=== PATIENT | male | born 1960 | race Caucasian/White ===

== ENCOUNTER 2020-02-03 19:10 | Emergency (ER) | payer OTHER ==
[~2020-02-03] VITALS: Ht 185.4 cm; Wt 90.9 kg
[2020-02-03 19:48] VITALS: BP 140/96
[2020-02-03 20:01] LABS: GLUCOSE,POINT OF CARE 86 MG/DL (70-110)
== END 2020-02-03 20:00 | disposition home or self-care (01) ==
LOC: EMS 19:12
DX: F10.129 Alcohol abuse with intoxication, unspecified (principal); E11.9 Type 2 diabetes mellitus without complications; Y90.4 Blood alcohol level of 80-99 mg/100 ml